=== PATIENT | female | born 2000 | race Caucasian/White ===

== ENCOUNTER 2022-10-24 11:07 | Emergency (ER) | payer OTHER ==
[~2022-10-24] VITALS: Ht 162.6 cm; Wt 61.0 kg
[2022-10-24] MEDS ORDERED: SODIUM CHLORIDE 0.9% 1,000 ML IV ONE ×2 (11:30→14:45)
[2022-10-24 11:55] LABS: CHLORIDE 115 mEq/L (98-107); HEMATOCRIT. 31.9 % (36.0-48.0); HEMOGLOBIN. 10.7 g/dL (12.0-16.0); MEAN CORPUSCULAR HEMOGLOBIN 32.3 pg (28.0-32.0); MEAN PLATELET VOLUME 9.8 fl (7.4-10.4); PLATELET 165 x1000/uL (130-400); RED BLOOD CELL COUNT 3.29 mill/uL (4.2-5.4); RED CELL DISTRIBUTION WIDTH 13.9 % (11.6-14.6)
[2022-10-24 12:23] LABS: PLATELET ESTIMATE NORMAL
[2022-10-24 13:57] LABS: CLARITY URINE CLOUDY (CLEAR); COLOR URINE YELLOW (YELLOW); KETONES URINE NEGATIVE (NEGATIVE); LEUKOCYTE ESTERASE URINE NEGATIVE (NEGATIVE); NITRITE URINE NEGATIVE (NEGATIVE); OCCULT BLOOD URINE 2+ (NEGATIVE); PROTEIN URINE NEGATIVE (NEGATIVE); UROBILINOGEN URINE 0.2 E.U./dL (0.2-1.0)
[2022-10-24] MEDS ORDERED: IBUPROFEN 600MG TABLET PO ONE (14:30)
[2022-10-24 15:00] VITALS: BP 110/54
== END 2022-10-24 16:44 | disposition home or self-care (01) ==
LOC: ER 12:04
DX: R55 Syncope and collapse (principal)
CPT/HCPCS: 36415; 70450; 80053; 81003; 81025; 85025; 93005; 96360; 99285; J7030; Z7610